=== PATIENT | female | born 1965 | race Caucasian/White ===

== ENCOUNTER → 2020-03-22 | Outpatient (CLI) | payer BC ==
[~2020-03-22] MED LIST: ALBUTEROL SULFATE 8GM INHALER. ONE
--- NOTE | 2020-03-23 12:33 | RAD ---
DATE: 03/22/2020 11:00 AM EXAM: DIGITAL SCREEN BILAT W/CAD HISTORY: Screening. Baseline COMPARISON: None Bilateral CC and MLO views of the breasts were performed.. This study was interpreted with the benefit of Computerized Aided Detection (CAD). FINDINGS: Breast Density: SCATTERED The breast parenchyma shows scattered fibroglandular densities. Breast parenchyma level B An asymmetry in the posterior right breast 8.8 cm from the nipple projects over the retroglandular fat in the superior right breast on the MLO view only. This could be an artifact of overlapping fibroglandular tissue but needs additional imaging with spot compression view and a full-field lateral view. No suspicious masses, microcalcifications or architectural distortion is present to suggest malignancy in the left breast. The visualized axillae are unremarkable. IMPRESSION: Right breast asymmetry, findings for which additional imaging is advised. BI-RADS CATEGORY: 0 INCOMPLETE: NEEDS ADDITIONAL IMAGING EVALUATION AND/OR PRIOR MAMMOGRAMS FOR COMPARISON. RECOMMENDED FOLLOW-UP: ADD ADDITIONAL IMAGING . Spot compression MLO view and a full-field lateral view recommended. PQRS compliance statement: Patient information was entered into a reminder system with a target due date for the next mammogram. Mammography is a sensitive method for finding small breast cancers, but it does not detect them all and is not a substitute for careful clinical examination. A negative mammogram does not negate a clinically suspicious finding and should not result in delay in biopsying a clinically suspicious abnormality. "Our facility is accredited by the [employer] Mammography Program."
== END ==
LOC: MAMMO 10:50
PROVIDERS: ATTEND Family Medicine
DX: Z12.31 Encounter for screening mammogram for malignant neoplasm of breast (principal)
CPT/HCPCS: 77067; J7613

== ENCOUNTER → 2020-04-16 | Outpatient (CLI) | payer BC ==
--- NOTE | 2020-04-17 08:11 | RAD ---
EXAM: Right digital diagnostic mammogram and targeted right breast ultrasound. HISTORY: Screening recall for asymmetry in the right breast. TECHNIQUE: Right full-field ML and spot MLO views were obtained with 2-D technique. COMPARISON: Screening mammogram 03/22/2020. COMPOSITION: B. There are scattered areas of fibroglandular density. FINDINGS: The questioned asymmetry on the full field lateral view appear to represent a lucent centered oval masses whose margins are obscured by overlying fibroglandular tissue. This became less conspicuous on spot compression so targeted ultrasound was performed and at the 9:00 position 8 cm from the nipple, an oval circumscribed 8 mm mass with an echogenic hilum was seen with little internal vascularity, compatible with a benign intramammary lymph node. This likely explains the mammographic finding recalled from screening. No suspicious mammographic or sonographic findings identified on this exam. BI-RADS CATEGORY: 2: Benign. RECOMMENDATION: 1. Routine screening mammography in one year. Electronically signed by: Heidi Bhakta MD (04/17/2020 8:08 AM) [id number]
== END ==
LOC: MAMMO 13:31
PROVIDERS: ATTEND Family Medicine
DX: R92.8 Other abnormal and inconclusive findings on diagnostic imaging of breast (principal); N63.41 Unspecified lump in right breast, subareolar
CPT/HCPCS: 76641; 77065